=== PATIENT | female | born 1980 | race Caucasian/White ===

== ENCOUNTER 2017-12-19 19:11 | Emergency (ER) | payer OTHER ==
[~2017-12-19] VITALS: Ht 144.8 cm; Wt 71.2 kg
[~2017-12-19 19:11] MED LIST: Z PO
[2017-12-19 21:00] LABS: CALCIUM 8.3 mg/dL (8.5-10.1); CARBON DIOXIDE 32.8 mmol/L (21-32); CHLORIDE SERUM 105 mmol/L (98-107); CREATININE SERUM 0.6 mg/dL (0.6-1.0); GFR1 > 60 mL/min; GLUCOSE SERUM 86 mg/dL (74-106); POTASSIUM SERUM 3.8 mmol/L (3.5-5.1); SODIUM SERUM 140 mmol/L (136-145)
[2017-12-19 21:03] LABS: BASOPHIL % 0.7 % (0-2); PLATELET COUNT 299 x10^3mcL (130-400); RED CELL DISTRIBUTION WIDTH 13.9 % (11.5-14.5)
[2017-12-19 21:04] LABS: ALKALINE PHOSPHATASE 109 U/L (46-116); ALT/SGPT 20 U/L (14-59); AST/SGOT 13 U/L (15-37); BILIRUBIN TOTAL 0.2 mg/dL (0.20-1.00); TOTAL PROTEIN, SERUM 6.5 g/dL (6.4-8.2)
[2017-12-19 21:05] LABS: ALBUMIN 2.9 g/dL (3.4-5.0)
[2017-12-19 22:07] VITALS: BP 124/68
== END 2017-12-19 22:07 | disposition home or self-care (01) ==
LOC: ED 19:11
PROVIDERS: Emergency Medicine
DX: D50.9 Iron deficiency anemia, unspecified (principal); M79.10 Myalgia, unspecified site
CPT/HCPCS: 36415

== ENCOUNTER 2018-01-10 09:50 | Emergency (ER) | payer OTHER ==
[~2018-01-10] VITALS: Ht 144.8 cm; Wt 69.9 kg
[2018-01-10 09:54] VITALS: Ht 144.8 cm; Wt 69.9 kg
[2018-01-10 11:35] VITALS: BP 119/75
== END 2018-01-10 11:35 | disposition home or self-care (01) ==
LOC: ED 09:50
DX: S00.83XA Contusion of other part of head, initial encounter (principal); F17.210 Nicotine dependence, cigarettes, uncomplicated; Y04.8XXA Assault by other bodily force, initial encounter; Y93.89 Activity, other specified; Y92.89 Other specified places as the place of occurrence of the external cause; Y99.8 Other external cause status

== ENCOUNTER 2018-04-30 18:08 | Emergency (ER) | payer OTHER ==
[~2018-04-30] VITALS: Ht 144.8 cm; Wt 69.4 kg
[2018-04-30 18:27] VITALS: BP 122/71; Ht 144.8 cm; Wt 69.4 kg
== END 2018-04-30 20:18 | disposition home or self-care (01) ==
LOC: ED 18:08
DX: J06.9 Acute upper respiratory infection, unspecified (principal); Z90.49 Acquired absence of other specified parts of digestive tract
CPT/HCPCS: 87804

== ENCOUNTER 2018-08-08 11:14 | Emergency (ER) | payer OTHER ==
[~2018-08-08] VITALS: Ht 152.4 cm; Wt 70.3 kg
[2018-08-08 11:39] VITALS: BP 107/65; Ht 152.4 cm; Wt 70.3 kg
== END 2018-08-08 14:00 | disposition home or self-care (01) ==
LOC: ED 11:14
DX: J03.90 Acute tonsillitis, unspecified (principal); Z90.49 Acquired absence of other specified parts of digestive tract
CPT/HCPCS: J1885

== ENCOUNTER 2018-10-08 20:31 | Emergency (ER) | payer OTHER ==
[~2018-10-08] VITALS: Ht 154.9 cm; Wt 76.2 kg
[2018-10-08 20:51] VITALS: Ht 154.9 cm; Wt 76.2 kg
[2018-10-08 21:47] LABS: BASOPHIL % 1.5 % (0-2); PLATELET COUNT 341 x10^3mcL (130-400)
[2018-10-08 21:49] LABS: RED CELL DISTRIBUTION WIDTH 16.1 % (11.5-14.5)
[2018-10-08 22:03] LABS: CALCIUM 8.5 mg/dL (8.5-10.1); CARBON DIOXIDE 30.1 mmol/L (21-32); CHLORIDE SERUM 106 mmol/L (98-107); CREATININE SERUM 0.8 mg/dL (0.6-1.0); GFR1 > 60 mL/min; GLUCOSE SERUM 113 mg/dL (74-106); POTASSIUM SERUM 3.3 mmol/L (3.5-5.1); SODIUM SERUM 145 mmol/L (136-145)
[2018-10-08 22:08] LABS: ALBUMIN 3.2 g/dL (3.4-5.0); ALKALINE PHOSPHATASE 110 U/L (46-116); ALT/SGPT 27 U/L (14-59); AST/SGOT 15 U/L (15-37); BILIRUBIN TOTAL 0.2 mg/dL (0.20-1.00); LIPASE 98 IU/L (73-393); TOTAL PROTEIN, SERUM 6.9 g/dL (6.4-8.2)
[2018-10-08 23:32] VITALS: BP 95/64
== END 2018-10-08 23:32 | disposition home or self-care (01) ==
LOC: ED 20:31
PROVIDERS: Emergency Medicine
DX: K52.9 Noninfective gastroenteritis and colitis, unspecified (principal); Z90.49 Acquired absence of other specified parts of digestive tract
CPT/HCPCS: 36415; J1885; J2270; J2405; J7030

== ENCOUNTER 2019-02-07 17:59 | Emergency (ER) | payer OTHER ==
[~2019-02-07] VITALS: Ht 144.8 cm; Wt 75.3 kg
[2019-02-07 18:06] VITALS: Ht 144.8 cm; Wt 75.3 kg
[2019-02-07 19:59] VITALS: BP 110/50
== END 2019-02-07 19:59 | disposition home or self-care (01) ==
LOC: ED 17:59
DX: F07.81 Postconcussional syndrome (principal); Z98.890 Other specified postprocedural states; Z90.49 Acquired absence of other specified parts of digestive tract; W10.9XXA Fall (on) (from) unspecified stairs and steps, initial encounter; Y93.89 Activity, other specified; Y92.89 Other specified places as the place of occurrence of the external cause; Y99.8 Other external cause status

== ENCOUNTER 2019-11-24 11:53 | Emergency (ER) | payer OTHER ==
[~2019-11-24] VITALS: Ht 144.8 cm; Wt 74.4 kg
[2019-11-24 12:11] VITALS: Ht 144.8 cm; Wt 74.4 kg
[2019-11-24 14:09] VITALS: BP 116/52
== END 2019-11-24 14:09 | disposition home or self-care (01) ==
LOC: ED 11:53
DX: M54.41 Lumbago with sciatica, right side (principal); Z90.49 Acquired absence of other specified parts of digestive tract; Z98.890 Other specified postprocedural states
CPT/HCPCS: J1885; Q0092

== ENCOUNTER 2019-12-14 22:49 | Emergency (ER) | payer OTHER ==
[~2019-12-14] VITALS: Ht 144.8 cm; Wt 73.0 kg
[2019-12-14 23:03] VITALS: Ht 144.8 cm; Wt 73.0 kg
[2019-12-14 23:49] LABS: BASOPHIL % 0.7 % (0-2); PLATELET COUNT 312 x10^3mcL (130-400)
[2019-12-15 00:45] LABS: CALCIUM 8.3 mg/dL (8.5-10.1); CARBON DIOXIDE 26.9 mmol/L (21-32); CHLORIDE SERUM 105 mmol/L (98-107); CREATININE SERUM 0.7 mg/dL (0.6-1.0); GFR1 > 60 mL/min; GLUCOSE SERUM 103 mg/dL (74-106); POTASSIUM SERUM 3.1 mmol/L (3.5-5.1); SODIUM SERUM 140 mmol/L (136-145)
[2019-12-15 00:51] LABS: ALBUMIN 3.1 g/dL (3.4-5.0); ALKALINE PHOSPHATASE 130 U/L (46-116); ALT/SGPT 20 U/L (14-59); AST/SGOT 10 U/L (15-37); BILIRUBIN TOTAL 0.1 mg/dL (0.20-1.00); LIPASE 546 IU/L (73-393); TOTAL PROTEIN, SERUM 6.7 g/dL (6.4-8.2)
[2019-12-15 01:03] VITALS: BP 119/58
== END 2019-12-15 01:40 | disposition home or self-care (01) ==
LOC: ED 22:49
PROVIDERS: Emergency Medicine
DX: K85.90 Acute pancreatitis without necrosis or infection, unspecified (principal); Z98.890 Other specified postprocedural states; Z90.49 Acquired absence of other specified parts of digestive tract
CPT/HCPCS: J1885; J2405; J7030

== ENCOUNTER 2020-04-11 21:55 | Emergency (ER) | payer OTHER ==
[~2020-04-11] VITALS: Ht 144.8 cm; Wt 74.4 kg
[2020-04-11 22:12] VITALS: Ht 144.8 cm; Wt 74.4 kg
[2020-04-12 01:27] LABS: BASOPHIL % 0.8 % (0.2-1.3); PLATELET COUNT 337 x10^3mcL (179-408)
[2020-04-12 01:32] LABS: RED CELL DISTRIBUTION WIDTH 15.3 % (12.3-17.7)
[2020-04-12 01:36] LABS: CALCIUM 8.1 mg/dL (8.5-10.1); CARBON DIOXIDE 25.9 mmol/L (21-32); CHLORIDE SERUM 109 mmol/L (98-107); CREATININE SERUM 0.7 mg/dL (0.6-1.0); GFR1 > 60 mL/min; GLUCOSE SERUM 133 mg/dL (74-106); POTASSIUM SERUM 3.9 mmol/L (3.5-5.1); SODIUM SERUM 141 mmol/L (136-145)
[2020-04-12 01:45] LABS: ALBUMIN 2.7 g/dL (3.4-5.0); ALKALINE PHOSPHATASE 109 U/L (46-116); ALT/SGPT 23 U/L (14-59); AST/SGOT 9 U/L (15-37); BILIRUBIN TOTAL 0.07 mg/dL (0.20-1.00)
[2020-04-12 02:23] VITALS: BP 123/72
== END 2020-04-12 02:23 | disposition home or self-care (01) ==
LOC: ED 21:55
PROVIDERS: Emergency Medicine
DX: R07.89 Other chest pain (principal); R51.9 Headache, unspecified; Z90.49 Acquired absence of other specified parts of digestive tract
CPT/HCPCS: J1885; J2765; J7030